=== PATIENT | male | born 1975 | race Caucasian/White ===

== ENCOUNTER 2018-03-13 00:23 | Emergency (ER) | payer SELFPAY ==
[~2018-03-13] VITALS: Ht 172.7 cm; Wt 81.6 kg
[2018-03-13 00:27] VITALS: BP 134/82
== END 2018-03-13 00:39 | disposition home or self-care (01) ==
LOC: ER 00:26
DX: L73.9 Follicular disorder, unspecified (principal); F41.9 Anxiety disorder, unspecified; J45.909 Unspecified asthma, uncomplicated; F43.10 Post-traumatic stress disorder, unspecified; Z59.0 Homelessness
CPT/HCPCS: 99283; A4606; Z7610

== ENCOUNTER 2018-03-16 01:16 | Emergency (ER) | payer MEDICAID, OTHER ==
[~2018-03-16] VITALS: Ht 172.7 cm; Wt 81.6 kg
[2018-03-16 01:21] VITALS: BP 131/81
== END 2018-03-16 05:14 | disposition home or self-care (01) ==
LOC: ER 01:17
DX: L03.012 Cellulitis of left finger (principal); J45.909 Unspecified asthma, uncomplicated; F43.10 Post-traumatic stress disorder, unspecified; Z59.0 Homelessness
CPT/HCPCS: 99283; A4606; Z7610

== ENCOUNTER 2018-07-15 01:41 | Emergency (ER) | payer MEDICAID, MEDICARE ==
[~2018-07-15] VITALS: Ht 172.7 cm; Wt 81.6 kg
[2018-07-15 01:49] VITALS: BP 154/99
[2018-07-15] MEDS ORDERED: HYDROCODONE/APAP 5/325MG 1 EACH TABLET ONE (02:19)
[2018-07-15] MEDS ORDERED: AMOXICILLIN TRIHYDRATE 250 MG CAPSULE ONE (02:19)
[2018-07-15] MEDS ORDERED: HYDROCODONE/APAP 5/325MG 1 EACH TABLET PO ONE (02:30)
[2018-07-15] MEDS ORDERED: AMOXICILLIN TRIHYDRATE 250 MG CAPSULE PO ONE (02:30)
== END 2018-07-15 02:49 | disposition home or self-care (01) ==
LOC: ER 01:49
DX: K08.89 Other specified disorders of teeth and supporting structures (principal); H61.22 Impacted cerumen, left ear; J45.909 Unspecified asthma, uncomplicated; F43.10 Post-traumatic stress disorder, unspecified; Z59.0 Homelessness

== ENCOUNTER 2020-09-15 11:59 | Emergency (ER) | payer MEDICARE ==
[~2020-09-15] VITALS: Ht 167.6 cm; Wt 81.2 kg
[2020-09-15 12:28] VITALS: BP 139/76
[2020-09-15] MEDS ORDERED: SULF1TAB48 PO (12:40)
[2020-09-15] MEDS ORDERED: CEPH500C2 PO (12:40)
--- NOTE | 2020-09-15 12:45 | NUR ---
Patient discharged to home in stable condition. Written and verbal after care instructions given. Patient verbalizes understanding of instruction. Pt ambulatory with a steady gait
== END 2020-09-15 12:45 | disposition home or self-care (01) ==
LOC: ER 11:59
DX: L03.221 Cellulitis of neck (principal); J45.909 Unspecified asthma, uncomplicated; F43.10 Post-traumatic stress disorder, unspecified; F41.9 Anxiety disorder, unspecified; Z60.2 Problems related to living alone

== ENCOUNTER 2020-12-26 20:01 | Emergency (ER) | payer MEDICARE ==
[~2020-12-26] VITALS: Ht 172.7 cm; Wt 72.6 kg
[~2020-12-26 20:01] MED LIST: CEPH500C2 PO; SULF1TAB48 PO
[2020-12-26 20:59] VITALS: BP 135/66
[2020-12-26] MEDS ORDERED: TDAP [DIPH/PERTUSSIS/TET] 0.5 ML VIAL IM ONE ×2 (21:30)
[2020-12-26] MEDS ORDERED: LIDOCAINE 1%-EPI 1:100,000 20 ML VIAL ONE (21:30)
[2020-12-26] MEDS ORDERED: CEPH500T PO (21:58)
[2020-12-26] MEDS ORDERED: SULF1TAB48 PO (21:58)
[2020-12-26] MEDS ORDERED: CEPHALEXIN MONOHYDRATE 500 MG CAPSULE PO ONE ×2 (22:00→22:02)
[2020-12-26] MEDS ORDERED: SULFAMETH/TRIMETH 800/160 MG 1 UDTAB TABLET PO ONE (22:00)
[2020-12-26] MEDS ORDERED: SULFAMETH/TRIMETH 800/160 MG 1 UDTAB TABLET ONE (22:02)
== END 2020-12-26 22:18 | disposition home or self-care (01) ==
LOC: ER 20:12
DX: L02.411 Cutaneous abscess of right axilla (principal); J45.909 Unspecified asthma, uncomplicated; F43.10 Post-traumatic stress disorder, unspecified; F41.9 Anxiety disorder, unspecified; F17.200 Nicotine dependence, unspecified, uncomplicated; Z60.2 Problems related to living alone; Z79.899 Other long term (current) drug therapy
CPT/HCPCS: 10060; 99283; A6407; J3490; 90715

== ENCOUNTER 2021-03-08 16:56 | Emergency (ER) | payer MEDICARE ==
[~2021-03-08] VITALS: Ht 172.7 cm; Wt 82.1 kg
[~2021-03-08 16:56] MED LIST changes: +CEPH500T PO
[2021-03-08 18:16] VITALS: BP 119/88
[2021-03-08] MEDS ORDERED: AMOX-430 PO (19:17)
[2021-03-08] MEDS ORDERED: IBUP-1953 PO (19:18)
[2021-03-08] MEDS ORDERED: IBUPROFEN 600 MG TABLET PO ONE (19:30)
[2021-03-08] MEDS ORDERED: IBUPROFEN 600 MG TABLET ONE (19:34)
--- NOTE | 2021-03-08 19:36 | NUR ---
Patient discharged to home in stable condition. Written and verbal after care instructions given. Patient verbalizes understanding of instruction.
== END 2021-03-08 19:37 | disposition home or self-care (01) ==
LOC: ER 16:59
DX: S61.452A Open bite of left hand, initial encounter (principal); J45.909 Unspecified asthma, uncomplicated; Z79.1 Long term (current) use of non-steroidal anti-inflammatories (NSAID); Z79.2 Long term (current) use of antibiotics; Z79.899 Other long term (current) drug therapy; W54.0XXA Bitten by dog, initial encounter; Y93.89 Activity, other specified; Y92.89 Other specified places as the place of occurrence of the external cause; Y99.8 Other external cause status

== ENCOUNTER 2021-03-24 22:08 | Emergency (ER) | payer MEDICARE ==
[~2021-03-24] VITALS: Ht 172.7 cm; Wt 70.3 kg
[~2021-03-24 22:08] MED LIST changes: +AMOX-430 PO; +IBUP-1953 PO
[2021-03-24 23:43] VITALS: BP 144/84
[2021-03-25] MEDS ORDERED: LIDOCAINE 1%-EPI 1:100,000 20 ML VIAL ONE (00:24)
[2021-03-25] MEDS ORDERED: LIDOCAINE HCL/PF 1% 30 ML VIAL TP ONE (00:30)
[2021-03-25] MEDS ORDERED: NICO-676 TP (01:52)
[2021-03-25] MEDS ORDERED: CEPH500C2 PO (01:52)
--- NOTE | 2021-03-25 02:02 | NUR ---
Patient discharged to home in stable condition. Written and verbal after care instructions given. Patient verbalizes understanding of instruction.
== END 2021-03-25 02:02 | disposition home or self-care (01) ==
LOC: ER 22:12
DX: L02.512 Cutaneous abscess of left hand (principal); F17.210 Nicotine dependence, cigarettes, uncomplicated; J45.909 Unspecified asthma, uncomplicated; F43.10 Post-traumatic stress disorder, unspecified; F41.9 Anxiety disorder, unspecified; Z60.2 Problems related to living alone; Z79.899 Other long term (current) drug therapy
CPT/HCPCS: 10060; 99283; 99406; J3490 ×2

== ENCOUNTER 2021-05-31 22:23 | Emergency (ER) | payer MEDICARE ==
[~2021-05-31] VITALS: Ht 172.7 cm; Wt 81.6 kg
[~2021-05-31 22:23] MED LIST changes: +NICO-676 TP
[2021-05-31 22:51] VITALS: BP 132/69
--- NOTE | 2021-05-31 22:55 | NUR ---
BIBS C/O "BURNING AND SORE" 09/14 HEAD AND NECK PAIN X72 HOURS. HAS NOT TAKEN ANY MEDICATIONS FOR [employer]. ALSO REPORTS CHILLS BUT HAS NOT CHECKED TEMPERATURE. PT AFEBRILE ON ASSESSMENT. V/S ASSESSED AND ALL WNL. NO NEURO DEFECITS NOTED. AMBULATED WITH STEADY GAIT TO ER 11.
[2021-05-31] MEDS ORDERED: HYDROCODONE/APAP 5/325MG TABLET ONE (23:01)
[2021-05-31] MEDS ORDERED: CEPHALEXIN MONOHYDRATE 500 MG CAPSULE PO ONE (23:01)
[2021-05-31] MEDS ORDERED: SULFAMETH/TRIMETH 800/160 MG 1 UDTAB TABLET ONE (23:01)
[2021-05-31] MEDS: CEPHALEXIN MONOHYDRATE 500 MG CAPSULE PO ONE (23:06)
[2021-05-31] MEDS: SULFAMETH/TRIMETH 800/160 MG 1 UDTAB TABLET PO ONE (23:06)
[2021-05-31] MEDS: HYDROCODONE/APAP 5/325MG TABLET PO ONE (23:06)
[2021-05-31] MEDS ORDERED: IBUP-1957 PO (23:10)
[2021-05-31] MEDS ORDERED: CEPH500C2 PO (23:10)
[2021-05-31] MEDS ORDERED: SULF1TAB48 PO (23:10)
[2021-05-31] MEDS ORDERED: HYDR-3972 PO (23:10)
== END 2021-06-01 00:19 | disposition home or self-care (01) ==
LOC: ER 23:08
DX: L03.811 Cellulitis of head [any part, except face] (principal); J45.909 Unspecified asthma, uncomplicated; F41.9 Anxiety disorder, unspecified; F17.200 Nicotine dependence, unspecified, uncomplicated; Z91.49 Other personal history of psychological trauma, not elsewhere classified; Z79.1 Long term (current) use of non-steroidal anti-inflammatories (NSAID); Z79.899 Other long term (current) drug therapy; Z60.2 Problems related to living alone

== ENCOUNTER 2021-08-16 16:21 | Emergency (ER) | payer MEDICARE ==
[~2021-08-16] VITALS: Ht 172.7 cm; Wt 72.6 kg
[~2021-08-16 16:21] MED LIST changes: +HYDR-3972 PO; +IBUP-1957 PO
[2021-08-16 16:30] VITALS: BP 119/65
--- NOTE | 2021-08-16 17:04 | NUR ---
Patient discharged to home in stable condition. Written and verbal after care instructions given. Patient verbalizes understanding of instruction.
== END 2021-08-16 17:04 | disposition home or self-care (01) ==
LOC: ER 16:24
DX: L84 Corns and callosities (principal); J45.909 Unspecified asthma, uncomplicated; F41.9 Anxiety disorder, unspecified; F17.200 Nicotine dependence, unspecified, uncomplicated; Z79.899 Other long term (current) drug therapy

== ENCOUNTER 2022-03-29 15:21 | Emergency (ER) | payer SELFPAY ==
[~2022-03-29] VITALS: Ht 167.6 cm; Wt 81.6 kg
[2022-03-29 15:50] VITALS: BP 148/90
[2022-03-29] MEDS ORDERED: KETOROLAC TROMETHAMINE INJ 30 MG/ML VIAL ONE (15:57)
[2022-03-29] MEDS ORDERED: CLIN150C16 PO (15:59)
[2022-03-29] MEDS ORDERED: KETOROLAC TROMETHAMINE INJ 60 MG/2 ML VIAL IM ONE (16:00)
--- NOTE | 2022-03-29 16:33 | NUR ---
Patient discharged to home in stable condition. Written and verbal after care instructions given. Patient verbalizes understanding of instruction. Prescriptions given.
== END 2022-03-29 16:33 | disposition home or self-care (01) ==
LOC: ER 15:21
DX: L03.211 Cellulitis of face (principal); J45.909 Unspecified asthma, uncomplicated; F41.9 Anxiety disorder, unspecified; F17.200 Nicotine dependence, unspecified, uncomplicated; Z60.2 Problems related to living alone; Z79.899 Other long term (current) drug therapy
CPT/HCPCS: 99283; 96372; J1885

== ENCOUNTER 2022-10-12 15:47 | Emergency (ER) | payer MEDICAID, MEDICARE ==
[~2022-10-12] VITALS: Ht 167.6 cm; Wt 82.6 kg
[~2022-10-12 15:47] MED LIST changes: +CLIN150C16 PO; +HYDR-4209 PO
[2022-10-12] MEDS ORDERED: AMOX500C2 PO (16:20)
[2022-10-12 16:51] VITALS: BP 133/75; TEMP 98.4; O2SAT 97
== END 2022-10-12 16:51 | disposition home or self-care (01) ==
LOC: ER 15:55
DX: K02.9 Dental caries, unspecified (principal); J45.909 Unspecified asthma, uncomplicated; F41.9 Anxiety disorder, unspecified; F17.200 Nicotine dependence, unspecified, uncomplicated; Z60.2 Problems related to living alone; Z79.899 Other long term (current) drug therapy

== ENCOUNTER 2022-10-22 07:45 | Emergency (ER) | payer SELFPAY ==
[~2022-10-22] VITALS: Ht 172.7 cm; Wt 82.6 kg
[~2022-10-22 07:45] MED LIST changes: +AMOX500C2 PO
[2022-10-22 07:52] VITALS: BP 142/91; TEMP 98.2; O2SAT 95
[2022-10-22] MEDS ORDERED: FLUORESCEIN SODIUM OPHTH 1 EA STRIP ONE (08:06)
[2022-10-22] MEDS ORDERED: CIPR5DRO LEFTEYE (08:40)
== END 2022-10-22 08:58 | disposition home or self-care (01) ==
LOC: ER 07:50
DX: H57.12 Ocular pain, left eye (principal); J45.909 Unspecified asthma, uncomplicated; F41.9 Anxiety disorder, unspecified; F17.200 Nicotine dependence, unspecified, uncomplicated; Z79.899 Other long term (current) drug therapy; Z60.2 Problems related to living alone

== ENCOUNTER 2022-12-22 16:21 | Emergency (ER) | payer MEDICARE ==
[~2022-12-22] VITALS: Ht 175.3 cm; Wt 84.4 kg
[~2022-12-22 16:21] MED LIST changes: +CIPR5DRO LEFTEYE
[2022-12-22 17:21] LABS: APPEARANCE,URINE CLEAR (CLEAR); BILIRUBIN,URINE NEGATIVE (NEGATIVE); BLOOD, URINE NEGATIVE Ery/uL (NEGATIVE); COLOR,URINE YELLOW (YELLOW); KETONES,URINE NEGATIVE (NEGATIVE); LEUKOCYTE ESTERASE ,URINE NEGATIVE (NEGATIVE); NITRITE, URINE NEGATIVE (NEGATIVE); PROTEIN,URINE NEGATIVE (NEGATIVE); UGLUCOSE NEGATIVE (NEGATIVE); UROBILINOGEN,URINE 0.2 EU/dL (0.2)
[2022-12-23 00:58] VITALS: BP 138/93; TEMP 98.3; O2SAT 97
[2022-12-24 22:06] LABS: CHLAMYDIA TRACHOMATIS NAA Negative (Negative); NEISSERIA GONORRHOEAE NAA Negative (Negative)
== END 2022-12-22 16:37 | disposition home or self-care (01) ==
LOC: ER 16:22
DX: R30.0 Dysuria (principal); J45.909 Unspecified asthma, uncomplicated; F41.9 Anxiety disorder, unspecified; F17.200 Nicotine dependence, unspecified, uncomplicated; Z60.2 Problems related to living alone
CPT/HCPCS: 99283; 87086; 81003; 87491; 87591; A6403 ×2

== ENCOUNTER 2023-01-11 10:00 | Emergency (ER) | payer SELFPAY | END 2023-01-11 11:24 | disposition left against medical advice (07) | LOC: ER 10:04 | DX: K08.89 Other specified disorders of teeth and supporting structures (principal); Z53.21 Procedure and treatment not carried out due to patient leaving prior to being seen by health care provider ==

== ENCOUNTER 2023-02-28 11:11 | Emergency (ER) | payer SELFPAY ==
[~2023-02-28] VITALS: Ht 175.3 cm; Wt 81.6 kg
[2023-02-28 11:20] VITALS: BP 133/82; TEMP 97.9; O2SAT 100
[2023-02-28] MEDS ORDERED: KETO10TA2 PO (11:47)
[2023-02-28] MEDS ORDERED: HYDR-4209 PO (11:47)
== END 2023-02-28 11:57 | disposition home or self-care (01) ==
LOC: ER 11:19
DX: K02.9 Dental caries, unspecified (principal); J45.909 Unspecified asthma, uncomplicated; F41.9 Anxiety disorder, unspecified; F17.200 Nicotine dependence, unspecified, uncomplicated; Z79.899 Other long term (current) drug therapy; Z60.2 Problems related to living alone

== ENCOUNTER 2023-07-08 08:27 | Emergency (ER) | payer SELFPAY ==
[~2023-07-08] VITALS: Ht 172.7 cm; Wt 85.3 kg
[~2023-07-08 08:27] MED LIST changes: +KETO10TA2 PO
[2023-07-08 08:31] VITALS: BP 121/84; TEMP 98.3
[2023-07-08 09:01] VITALS: O2SAT 99
== END 2023-07-08 09:02 | disposition home or self-care (01) ==
LOC: ER 08:39
DX: F41.9 Anxiety disorder, unspecified (principal); F17.200 Nicotine dependence, unspecified, uncomplicated; J45.909 Unspecified asthma, uncomplicated; Z79.899 Other long term (current) drug therapy; Z60.2 Problems related to living alone

== ENCOUNTER 2023-09-28 09:46 | Emergency (ER) | payer MEDICARE ==
[~2023-09-28] VITALS: Ht 172.7 cm; Wt 82.1 kg
[2023-09-28 10:27] VITALS: BP 124/70; TEMP 98.8; O2SAT 100
== END 2023-09-28 10:27 | disposition home or self-care (01) ==
LOC: ER 09:52
DX: R19.7 Diarrhea, unspecified (principal); F17.200 Nicotine dependence, unspecified, uncomplicated; Z59.00 Homelessness unspecified

== ENCOUNTER 2024-04-05 08:34 | Emergency (ER) | payer MEDICARE ==
[~2024-04-05] VITALS: Ht 172.7 cm; Wt 81.6 kg
[2024-04-05 08:44] VITALS: BP 133/80; TEMP 98.5
[2024-04-05] MEDS ORDERED: PENI500T PO (09:06)
[2024-04-05] MEDS ORDERED: CHLO473M5 PO (09:06)
[2024-04-05] MEDS ORDERED: IBUP-1955 PO (09:06)
[2024-04-05 09:15] VITALS: O2SAT 97
== END 2024-04-05 09:17 | disposition home or self-care (01) ==
LOC: ER 08:38
DX: K02.9 Dental caries, unspecified (principal); G89.29 Other chronic pain; K03.2 Erosion of teeth; F17.200 Nicotine dependence, unspecified, uncomplicated; Z79.1 Long term (current) use of non-steroidal anti-inflammatories (NSAID)